=== PATIENT | male | born 1970 | race Two or more races ===

== ENCOUNTER 2017-03-14 00:40 | Emergency (ER) | payer MEDICAID, OTHER ==
[~2017-03-14] VITALS: Ht 172.7 cm; Wt 68.0 kg
[2017-03-14 00:48] VITALS: BP 155/89
== END 2017-03-14 02:07 | disposition home or self-care (01) ==
LOC: ER 00:46
DX: S01.01XD Laceration without foreign body of scalp, subsequent encounter (principal)
CPT/HCPCS: A4606; Z7502; Z7610